=== PATIENT | male | born 1970 | race Hispanic/Latino ===

== ENCOUNTER 2017-04-10 13:41 | Emergency (ER) | payer OTHER ==
[2017-04-10 13:42] VITALS: BMI 24.3
[2017-04-10 14:08] VITALS: BP 109/75; PULSE 83; RESP 16; TEMP 97.5; O2SAT 99
[2017-04-10] MEDS ORDERED: Tdap Vaccine 0.5 ml Vial (10-64 yrs) IM ONE ×2 (14:16→15:13)
[2017-04-10] MEDS ORDERED: Lidocaine 1% Inj (20ml) IJ STA (14:16)
[2017-04-10] MEDS ORDERED: Lidocaine 1% Inj (20ml) ONE (14:28)
--- NOTE | 2017-04-10 14:29 | ED PDOC ---
HPI: General Adult Time Seen by Provider: 04/10/17 14:11 Chief Complaint (Nursing): Abnormal Skin Integrity Chief Complaint (Provider): Fall History Per: Patient History/Exam Limitations: no limitations Onset/Duration Of Symptoms: Mins ([employer]) Current Symptoms Are (Timing): Still Present Additional Complaint(s): 46 year old right hand dominant male presents to the ED for evaluation s/p trip and fall. He complains of laceration to his right hand and abrasion to left knee. Patient reports he cut his hand on a metal fence trying to break his fall. He denies injury to head or loss of consciousness. Last tetanus unknown. PMD: none Past Medical History Reviewed: Historical Data, Nursing Documentation, Vital Signs Vital Signs: Last Vital Signs Temp 97.5 F L 04/10/17 14:03 Pulse 83 04/10/17 14:03 Resp 16 04/10/17 14:03 BP 109/75 04/10/17 14:03 Pulse Ox 99 04/10/17 14:40 - Medical History PMH: Diabetes - Surgical History Surgical History: No Surg Hx - Family History Family History: States: Diabetes, Hypertension - Living Arrangements Living Arrangements: With Family - Social History Current smoker - smoking cessation education provided: No Alcohol: None Drugs: Denies - Immunization History Hx Tetanus Toxoid Vaccination: No (not sure of last booster) - Home Medications Home Medications: Ambulatory Orders Medication Instructions Recorded Cinnamon Bark [Cinnamon] 1,000 mg PO BID 07/30/15 DiphenhydrAMINE [Benadryl] 50 mg PO HS PRN 07/30/15 Metformin HCl [Metformin HCl ER] 1,000 mg PO BID 07/30/15 Multivit-Min/Folic/Vit K/Lycop 1 tab PO DAILY 07/30/15 [One-A-Day Men's Tablet] - Allergies Allergies/Adverse Reactions: Allergies Allergy/AdvReac Type Severity Reaction Status Date / Time No Known Allergies Allergy Verified 07/30/15 15:16 Review of Systems ROS Statement: Except As Marked, All Systems Reviewed And Found Negative Musculoskeletal: Positive for: Hand Pain (right hand laceration), Leg Pain ( left knee abrasion) Physical Exam - Reviewed Nursing Documentation Reviewed: Yes Vital Signs Reviewed: Yes - Physical Exam Appears: Positive for: Well, Non-toxic, No Acute Distress Head Exam: Positive for: ATRAUMATIC Skin: Positive for: Normal Color. Negative for: Rash Eye Exam: Positive for: EOMI, Normal appearance, PERRL Neck: Positive for: Normal, Painless ROM Extremity: Positive for: Other (2 cm linear vertical laceration to palmar aspect of right hand with mild active bleeding, no FB, N/V intact, full rom of all digits of right hand and right wrist; abrasions to left patellar region with full rom of left knee) Neurologic/Psych: Positive for: Alert, Oriented, Gait (steady) - ECG O2 Sat by Pulse Oximetry: 99 (RA) Pulse Ox Interpretation: Normal Medical Decision Making Medical Decision Making: Time: 14:16 Impression: 46 year old male with hand and knee injury status post fall Initial Plan: --Tetanus .5 ml IM --Lidocaine 1% 20 ml IJ --Lac repair See procedure note. Abrasion to knee was cleansed with normal saline and Betadine, bacitracin gauze wrap applied. Patient was given wound care instructions. Scribe Attestation: Documented by Sue Grove, acting as a scribe for Hui Degroot PA-C Provider Scribe Attestation: All medical record entries made by the Scribe were at my direction and personally dictated by me. I have reviewed the chart and agree that the record accurately reflects my personal performance of the history, physical exam, medical decision making, and the department course for this patient. I have also personally directed, reviewed, and agree with the discharge instructions and disposition. Procedures - Laceration/Wound Repair right hand Wound Length (cm): 2 Wound's Depth, Shape: superficial Wound Explored: clean Irrigated w/ Saline (ccs): 20 Betadine Prep?: Yes Anesthesia: 1% Lidocaine Volume Anesthetic (ccs): 8 Wound Debrided: moderate Wound Repaired With: Sutures Suture Size/Type: 5:0 Number of Sutures: 4 Layer Closure?: No Wound Complexity: Simple Sterile Dressing Applied?: Yes Splint Applied?: No Disposition - Clinical Impression Clinical Impression: Hand laceration, Requires a booster tetanus, Knee abrasion - Patient ED Disposition Is Patient to be Admitted: No Counseled Patient/Family Regarding: Diagnosis, Need For Followup, Rx Given - Disposition Referrals: Hai Pineda MD [Medical Doctor] - Disposition: Routine/Home Disposition Time: 15:13 Condition: STABLE Additional Instructions: Wash wound daily with soap and water, pat dry and apply neosporin and bandage daily. Otherwise, keep wound clean and dry. Over the counter advil or tylenol for pain. Wound check 2-3 days. Suture removal 10-14 days. Instructions: Diphtheria and Tetanus Toxoids, and Acellular Pertussis Vaccine, Laceration Repair With Stitches (DC), Skin Abrasions Forms: [facility] (Maltese)
== END 2017-04-10 15:24 | disposition home or self-care (01) ==
LOC: H.ER 13:41
DX: S61.411A Laceration without foreign body of right hand, initial encounter (principal); S80.212A Abrasion, left knee, initial encounter; W01.0XXA Fall on same level from slipping, tripping and stumbling without subsequent striking against object, initial encounter; Z23 Encounter for immunization